=== PATIENT | male | born 1995 | race American Indian/Alaskan Native ===

== ENCOUNTER 2018-07-21 04:01 | Emergency (ER) | payer OTHER ==
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
[2018-07-21 07:19] VITALS: BP 103/45
== END 2018-07-21 07:19 | disposition home or self-care (01) ==
LOC: ED 04:01
DX: S39.012A Strain of muscle, fascia and tendon of lower back, initial encounter (principal); S16.1XXA Strain of muscle, fascia and tendon at neck level, initial encounter; F17.200 Nicotine dependence, unspecified, uncomplicated; V89.2XXA Person injured in unspecified motor-vehicle accident, traffic, initial encounter; Y93.89 Activity, other specified; Y92.488 Other paved roadways as the place of occurrence of the external cause; Y99.8 Other external cause status
CPT/HCPCS: 99282

== ENCOUNTER 2019-05-23 20:38 | Emergency (ER) | payer BC ==
[2019-05-23 20:48] VITALS: BP 127/59
[2019-05-23] MEDS ORDERED: IBUPROFEN 800 MG TAB PO ONE (22:32)
[2019-05-23] MEDS ORDERED: TETANUS,DIPH,PERTUSS(ACELL) VACCINE 0.5 ML SYRINGE IM ONE (22:32)
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
[2019-05-24] MEDS ORDERED: LIDOCAINE-MPF (1%) 10 MG/1 ML VIAL 5 ML INFILTRATI ONE (02:41)
[2019-05-24] MEDS ORDERED: LIDOCAINE-MPF (1%) 10 MG/1 ML VIAL 5 ML ONE (02:42)
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
== END 2019-05-24 03:39 | disposition home or self-care (01) ==
LOC: ED 20:38
DX: S51.812A Laceration without foreign body of left forearm, initial encounter (principal); Z79.1 Long term (current) use of non-steroidal anti-inflammatories (NSAID); Z79.899 Other long term (current) drug therapy; Y08.89XA Assault by other specified means, initial encounter; Y93.89 Activity, other specified; Y92.89 Other specified places as the place of occurrence of the external cause; Y99.8 Other external cause status
CPT/HCPCS: 90471; 90715